=== PATIENT | female | born 1975 | race Caucasian/White ===

== ENCOUNTER 2018-10-06 23:55 | Emergency (ER) | payer MEDICAID, OTHER ==
[2018-10-07] MEDS ORDERED: MORPHINE SULFATE 4 MG/ML SYRINGE IVP STA (00:35)
[2018-10-07] MEDS ORDERED: ONDANSETRON 4 MG/2 ML VIAL IVP STA (00:35)
[2018-10-07] MEDS ORDERED: LORazepam 2 MG/ML INJ IV STA (00:39)
[2018-10-07 01:38] LABS: Basophils # (A) 0.1 k/uL (0-0.2); Basophils % (A) 1 %; Eosinophils # (A) 0.1 k/uL (0-0.7); Eosinophils % (A) 2 %; HCT 43.9 % (34.0-46.0); HGB 14.4 gm/dL (11.4-16.0); Lymphocytes # (A) 3.2 k/uL (1.0-4.8); Lymphocytes % (A) 35 %; MCH 29.8 pg (25.0-35.0); MCHC 32.8 g/dL (31.0-37.0); Mean Platelet Volume 7.1; Monocytes # (A) 0.4 k/uL (0-1.0); Monocytes % (A) 4 %; Neutrophils # (A) 5.1 k/uL (1.3-7.7); Neutrophils % (A) 56 %; Platelet Count 218 k/uL (150-450); RBC 4.82 m/uL (3.80-5.40); WBC 9.1 k/uL (3.8-10.6)
[2018-10-07 02:02] LABS: ALT 40 U/L (9-52); AST 67 U/L (14-36); Albumin 4.3 g/dL (3.5-5.0); Alkaline Phosphatase 82 U/L (38-126); Anion Gap 9 mmol/L; Blood Urea Nitrogen 13 mg/dL (7-17); Calcium 9.5 mg/dL (8.4-10.2); Carbon Dioxide 29 mmol/L (22-30); Chloride 102 mmol/L (98-107); Glucose 138 mg/dL (74-99); Sodium 140 mmol/L (137-145); Total Bilirubin 1.5 mg/dL (0.2-1.3); Total Protein 7.7 g/dL (6.3-8.2)
--- NOTE | 2018-10-07 02:11 | CT ---
EXAMINATION TYPE: CT abdomen pelvis w con DATE OF EXAM: 10/07/2018 COMPARISON: None HISTORY: Abd pain CT DLP: 3815.20 mGycm Automated exposure control for dose reduction was used. TECHNIQUE: Helical acquisition of images was performed from the lung bases through the pelvis. CONTRAST: Performed without Oral Contrast and with IV Contrast, patient injected with 100 mL of Isovue 300. FINDINGS: Multiple axial sections were obtained from the diaphragm to the floor the pelvis with intravenous con trast. FINDINGS: There is some mild atelectasis at the lung bases. Heart appears enlarged. There is no pericardial eff usion. There is no pleural effusion. Exam is limited by patient size. Stomach is distended. Liver maricruz ws no focal defect. Liver is enlarged and measures 20 cm. Gallbladder is large and measures 4 cm. Spl een appears normal. There is no evidence of a pancreatic mass. There is no adrenal mass. Kidneys show satisfactory contrast opacification. There is no hydronephrosi s. Ureters are not dilated. There is small umbilical hernia that contains fat. There is no retroperit vyas adenopathy. The appendix appears normal. There is no free fluid in the abdomen. Bladder distend s smoothly. There is no inguinal hernia. There is no evidence of a pelvic mass. There is no sign of f ree air. There is no mesenteric edema. There are scattered sigmoid diverticula. There is no sign of d iverticulitis. There is no evidence of a bowel obstruction. There is subcutaneous edema over the post erior lumbar spine. There is narrowing at L5-S1 disc space. There is no compression fracture. Lumbar spine is intact. Bony pelvis appears intact. IMPRESSION: NEGATIVE CT SCAN ABDOMEN AND PELVIS. CARDIOMEGALY. NORMAL APPENDIX. NO ACUTE ABNORMALITY. Hepatomegaly. Sigmoid diverticulosis without diverticulitis.
--- NOTE | 2018-10-07 02:19 | CT ---
EXAMINATION TYPE: CT thor lumbar spine w con DATE OF EXAM: 10/07/2018 COMPARISON: None HISTORY: back pain CT DLP: mGycm Automated exposure control for dose reduction was used. CONTRAST: Performed with IV Contrast, patient injected with mL of . The contrast was Isovue 100 mL. FINDINGS: The thoracic and lumbar vertebra have fairly normal spacing and alignment. There is narrowing at L5-S 1 disc space with spurring of the endplates. There is no compression fracture. There is no thoracic p araspinal mass. There is no lumbar paraspinal mass. The posterior elements are intact. There is no felix mbar spinal stenosis. The sacroiliac joints appear intact. Sacrum appears intact. IMPRESSION: MILD SPONDYLOSIS AT L5-S1. NO FRACTURE SEEN. MILD POSTERIOR DISC BULGING AT L4-5 AND L5-S1 WITHOUT SP INAL STENOSIS. NEGATIVE THORACIC SPINE CT SCAN.
[2018-10-07 02:20] LABS: Appearance,Urine Clear (Clear); Bilirubin,Urine Negative (Negative); Blood,Urine Negative (Negative); Color,Urine Yellow; Glucose,Urine (UA) Negative (Negative); Ketones,Urine Negative (Negative); Leukocyte Esterase,Urine Negative (Negative); Nitrite,Urine Negative (Negative); Protein,Urine Trace (Negative); Urobilinogen,Urine <2.0 mg/dL (<2.0)
--- NOTE | 2018-10-07 02:30 | ED ---
Back Pain HPI - General Chief Complaint: Back Pain/Injury Stated Complaint: Back/ Abd Pain Time Seen by Provider: 10/07/18 00:16 Source: patient Limitations: no limitations - History of Present Illness Initial Comments: 43-year-old female past history of chronic back pain presenting today for chief complaint of back pain. Patient states that she noticed some right-sided low back pain that felt muscular in characteristic. She states she attempts to stretch as her is a massage therapist he began to massage her back. She states that this increased the pain causing her muscles to spasm and significant pain. Patient states she is unable to control pain and presented for evaluation. Patient denies any falls trauma to the back. Patient denies any dysuria, urgency, frequency, hematuria, fever, chills, night sweats, loss of bowel bladder control, urinary retention, loss of sensation or muscle weakness of the lower extremities.. Patient denies any chest pain dizziness or shortness of breath. Patient denies any dyspnea on exertion or thoracic back pain. Patient states that pain significantly increases with any movement of the lumbar spine. Remainder was negative. Upon arrival patient appears uncomfortable. Vital signs within acceptable limits. - Related Data Previous Rx's Medication Instructions Recorded Cyclobenzaprine [Flexeril] 10 mg PO HS 6 Days #6 tab 10/07/18 Allergies Allergy/AdvReac Type Severity Reaction Status Date / Time cetirizine HCl [From Zyrtec] Allergy Nausea & Verified 10/07/18 00:13 Vomiting citalopram hydrobromide Allergy Nausea & Verified 10/07/18 00:13 [From Celexa] Vomiting fluconazole [From Diflucan] Allergy Nausea & Verified 10/07/18 00:13 Vomiting hydrocodone bitartrate Allergy Nausea & Verified 10/07/18 00:13 [From [place]] Vomiting ibuprofen [From Motrin] Allergy Itching Verified 10/07/18 00:13 morphine Allergy Nausea & Verified 10/07/18 00:13 Vomiting paroxetine HCl [From Paxil] Allergy Nausea & Verified 10/07/18 00:13 Vomiting venlafaxine HCl Allergy Nausea & Verified 10/07/18 00:13 [From Effexor] Vomiting Review of Systems ROS Statement: Those systems with pertinent positive or pertinent negative responses have been documented in the HPI. ROS Other: All systems not noted in ROS Statement are negative. Past Medical History Past Medical History: No Reported History Additional Past Medical History / Comment(s): herniated disc History of Any Multi-Drug Resistant Organisms: None Reported Past Surgical History: Adenoidectomy Additional Past Surgical History / Comment(s): right Pinky, eye sx Past Anesthesia/Blood Transfusion Reactions: No Reported Reaction Past Psychological History: Depression Smoking Status: Never smoker Past Alcohol Use History: None Reported Past Drug Use History: None Reported - Past Family History Mother Family Medical History: No Reported History General Exam - General Exam Comments Initial Comments: General: The patient is awake and alert, in no distress, and does not appear acutely ill. Eye: +3 mm pupils are equal, round and reactive to light, extra-ocular movements are intact. No nystagmus. There is normal conjunctiva bilaterally. No signs of icterus. Ears, nose, mouth and throat: There are moist mucous membranes and no oral lesions. Neck: The neck is supple, there is no tenderness or JVD. Cardiovascular: There is a regular rate and rhythm. No murmur, rub or gallop is appreciated. Respiratory: Lungs are clear to auscultation, respirations are non-labored, breath sounds are equal. No wheezes, stridor, rales, or rhonchi. Gastrointestinal: Soft, non-distended, non-tender abdomen without masses or organomegaly noted. There is no rebound or guarding present. No CVA tenderness. Bowel sounds are unremarkable. Musculoskeletal: Patient is able to ambulate without difficulty. No midline tenderness to palpation of the lumbar spine. There is lumbar right-sided paravertebral tenderness as well as significant muscle tension bilaterally of the paravertebral and back musculature, lumbar region. Normal ROM, no tenderness of the lower extremities equal bilaterally. Strength 5/5 of the lower extremities equal bilaterally. Sensation intact of the lower extremities including the saddle region. DP pulses equal bilaterally 2+. Neurological: A&O x 3. CN II-XII intact, There are no obvious motor or sensory deficits. Coordination appears grossly intact. Speech is normal. Skin: Skin is warm and dry and no rashes or lesions are noted. Psychiatric: Cooperative, appropriate mood & affect, normal judgment. Limitations: no limitations Course Vital Signs 10/07/18 10/07/18 10/07/18 00:11 02:14 02:51 Temperature 97.6 F 97.5 F L Pulse Rate 80 86 88 Respiratory 20 18 10 L Rate Blood Pressure 150/60 124/80 130/81 O2 Sat by Pulse 99 98 96 Oximetry Medical Decision Making - Medical Decision Making 40-year-old female with chief complaint of low back pain. No history of trauma. Patient states increased with massage. Patient's pain appear colicky, concern for renal colic. CT of the abdomen and pelvis negative for nephrolithiasis. Patient pain is reproducible. No signs of cauda equina. Patient given medication including muscle relaxant and opiate for pain relief. Upon ambulation patient is much more comfortable. Patient is able to ambulate without difficulty. Patient's pain appears mostly paravertebral and upper back musculature. There is palpable muscle tension. At this time due to the patient 's pain is muscular skeletal. Urinalysis revealed no hematuria. Significant improvement patient pain. I feel patient is stable for discharge with prescription for Flexeril for symptom relief. Patient instructed to use ibuprofen for pain management. She is agreeable plan and discharged. Return parameters were discussed at length, patient verbalizes understanding. Patient discharged stable condition. Case discussed with attending provider Dr. Barrera prior to pt discharge. - Lab Data Result diagrams: 10/07/18 00:50 10/07/18 00:50 Lab Results 10/07/18 10/07/18 10/07/18 Range/Units 00:50 00:50 02:10 WBC 9.1 (3.8-10.6) k/uL RBC 4.82 (3.80-5.40) m/uL Hgb 14.4 (11.4-16.0) gm/dL Hct 43.9 (34.0-46.0) % MCV 91.0 (80.0-100.0) fL MCH 29.8 (25.0-35.0) pg MCHC 32.8 (31.0-37.0) g/dL RDW 13.0 (11.5-15.5) % Plt Count 218 (150-450) k/uL Neutrophils % 56 % Lymphocytes % 35 % Monocytes % 4 % Eosinophils % 2 % Basophils % 1 % Neutrophils # 5.1 (1.3-7.7) k/uL Lymphocytes # 3.2 (1.0-4.8) k/uL Monocytes # 0.4 (0-1.0) k/uL Eosinophils # 0.1 (0-0.7) k/uL Basophils # 0.1 (0-0.2) k/uL Sodium 140 (137-145) mmol/L Potassium 4.0 (3.5-5.1) mmol/L Chloride 102 (98-107) mmol/L Carbon Dioxide 29 (22-30) mmol/L Anion Gap 9 mmol/L BUN 13 (7-17) mg/dL Creatinine 0.82 (0.52-1.04) mg/dL Est GFR (CKD-EPI)AfAm >90 (>60 ml/min/1.73 sqM) Est GFR (CKD-EPI)NonAf 88 (>60 ml/min/1.73 sqM) Glucose 138 H (74-99) mg/dL Calcium 9.5 (8.4-10.2) mg/dL Total Bilirubin 1.5 H (0.2-1.3) mg/dL AST 67 H (14-36) U/L ALT 40 (9-52) U/L Alkaline Phosphatase 82 (38-126) U/L Total Protein 7.7 (6.3-8.2) g/dL Albumin 4.3 (3.5-5.0) g/dL Urine Color Yellow Urine Appearance Clear (Clear) Urine pH 7.0 (5.0-8.0) Ur Specific [place] >1.050 H (1.001-1.035) Urine Protein Trace H (Negative) Urine Glucose (UA) Negative (Negative) Urine Ketones Negative (Negative) Urine Blood Negative (Negative) Urine Nitrite Negative (Negative) Urine Bilirubin Negative (Negative) Urine Urobilinogen <2.0 (<2.0) mg/dL Ur Leukocyte Esterase Negative (Negative) Disposition Clinical Impression: Low back strain, Acute exacerbation of chronic low back pain Disposition: HOME SELF-CARE Condition: Good Instructions (If sedation given, give patient instructions): Acute Low Back Pain (ED) Additional Instructions: Please use medication as discussed. Please follow-up with family doctor in the next 2 days. Please return to emergency room if the symptoms increase or worsen or for any other concerns. Prescriptions: Cyclobenzaprine [Flexeril] 10 mg PO HS 6 Days #6 tab Is patient prescribed a controlled substance at d/c from ED?: No Referrals: Blane Parks MD [Primary Care Provider] - 1-2 days Time of Disposition: 02:29
[2018-10-07 03:00] VITALS: BP 130/81; PULSE 88; RESP 10; TEMP 97.5
[2018-10-07 03:08] LABS: Specific Gravity,Urine >1.050 (1.001-1.035)
== END 2018-10-07 02:51 | disposition home or self-care (01) ==
LOC: EC 23:55
DX: S39.012A Strain of muscle, fascia and tendon of lower back, initial encounter (principal); G89.29 Other chronic pain; Z88.5 Allergy status to narcotic agent; Z88.6 Allergy status to analgesic agent; Z88.8 Allergy status to other drugs, medicaments and biological substances; X58.XXXA Exposure to other specified factors, initial encounter; Y93.01 Activity, walking, marching and hiking
CPT/HCPCS: 36415; 80053; 85025; 81003; 72129; 72132; 74177; 99284; 96374; 96375 ×2; J2060; J2270; J2405; Q9967

== ENCOUNTER → 2018-10-09 | Outpatient (CLI) | payer MEDICAID ==
--- NOTE | 2018-10-09 14:00 | US ---
EXAMINATION TYPE: US abdomen limited DATE OF EXAM: 10/09/2018 COMPARISON: CLINICAL HISTORY: R10.30 ABD Pain. RUQ pain EXAM MEASUREMENTS: Liver Length: 18.7 cm Gallbladder Wall: 0.3 cm CHD: 0.4 cm Right Kidney: 12.2 x 5.8 x 5.2 cm Pancreas: Tail obscured by overlying bowel gas. Body - 1.9 cm. Liver: Appears enlarged in size. Gallbladder: multiple mobile echogenic foci. GB length - 9.4 cm Evidence for sonographic Qureshi's sign: neg CBD: Obscured by overlying bowel gas Right Kidney: wnl IMPRESSION: 1. Hepatomegaly 2. Multiple echogenic gallstones. No wall thickening or common bile duct dilatation.
== END | disposition home or self-care (01) ==
LOC: RADUSWWP 12:21
PROVIDERS: ATTEND Family Medicine
DX: K80.20 Calculus of gallbladder without cholecystitis without obstruction (principal); R16.0 Hepatomegaly, not elsewhere classified; Z88.8 Allergy status to other drugs, medicaments and biological substances
CPT/HCPCS: 76705

== ENCOUNTER 2018-10-16 06:47 | Day surgery (SDC) | payer MEDICAID ==
[2018-10-12 16:19] VITALS: BMI 43.2
[~2018-10-16 06:47] MED LIST: DEXAMETHASONE SOD PHOSPHATE 10 MG/ML 1 ML VIAL IV ONE; HEPARIN SODIUM,PORCINE 5,000 UNIT/ML 1 ML VIAL SQ ONE; LACTATED RINGERS 1,000 ML IV SCH; MIDAZOLAM (PF) 2 MG/2 ML VIAL IV PRN; ONDANSETRON 4 MG/2 ML VIAL IVP ONE; SCOPOLAMINE 1.5MG/72HR PATCH TRANSDERM ONE; ceFAZolin IN SWFI 2 GM/20 ML SYRINGE IVP ONE; fentaNYL (PF) 50 MCG/ML 2 ML AMP IV PRN
[2018-10-16] MEDS ORDERED: LIDOCAINE 1% 20 ML VIAL (10MG/ML) FOR IV START SQ ONE (07:20)
--- NOTE | 2018-10-16 07:47 | P.GSHP ---
History of Present Illness H&P Date: 10/16/18 Chief Complaint: Right upper quadrant pain This a 43-year-old female who presents today for laparoscopic cholecystectomy. Patient has had complaints of right quadrant pain. Her recent ultrasounds evidence of cholelithiasis. Past Medical History Past Medical History: Liver Disease Additional Past Medical History / Comment(s): herniated disc, enlarged liver with elevated liver enzymes, PCOS, diverticulosis/diverticulitis History of Any Multi-Drug Resistant Organisms: None Reported Past Surgical History: Appendectomy, Orthopedic Surgery Additional Past Surgical History / Comment(s): right Pinky, eye sx Past Anesthesia/Blood Transfusion Reactions: Postoperative Nausea & Vomiting ( PONV) Smoking Status: Never smoker - Past Family History Mother Family Medical History: Cancer, COPD Additional Family Medical History / Comment(s): cervical cancer Sister(s) Family Medical History: Cancer Additional Family Medical History / Comment(s): cervical cancer Medications and Allergies Home Medications Medication Instructions Recorded Confirmed Type Cyclobenzaprine [Flexeril] 10 mg PO HS 6 Days #6 tab 10/07/18 10/16/18 Rx Pamprin 1 tab PO DAILY PRN 10/12/18 10/16/18 History Midol (Acetaminophen) 1 tab PO DAILY PRN 10/13/18 10/16/18 History Allergies Allergy/AdvReac Type Severity Reaction Status Date / Time cetirizine HCl [From Zyrtec] Allergy Nausea & Verified 10/16/18 06:58 Vomiting citalopram hydrobromide Allergy Nausea & Verified 10/16/18 06:58 [From Celexa] Vomiting fluconazole [From Diflucan] Allergy Nausea & Verified 10/16/18 06:58 Vomiting hydrocodone bitartrate Allergy Nausea & Verified 10/16/18 06:58 [From [place]] Vomiting ibuprofen [From Motrin] Allergy Itching Verified 10/16/18 06:58 morphine Allergy Nausea & Verified 10/16/18 06:58 Vomiting paroxetine HCl [From Paxil] Allergy Nausea & Verified 10/16/18 06:58 Vomiting venlafaxine HCl Allergy Nausea & Verified 10/16/18 06:58 [From Effexor] Vomiting Surgical - Exam Vital Signs Temp Pulse Resp BP Pulse Ox 98.4 F 81 16 111/78 94 L 10/16/18 07:13 10/16/18 07:13 10/16/18 07:13 10/16/18 07:13 10/16/18 07:13 - General well developed, well nourished, no distress - Eyes PERRL - ENT normal pinna - Neck no masses - Respiratory normal expansion - Cardiovascular Rhythm: regular - Abdomen Abdomen: soft, non tender Assessment and Plan Assessment: Right upper quadrant pain Lithiasis We'll perform laparoscopic cholecystectomy.
[2018-10-16] MEDS ORDERED: ROCURONIUM BROMIDE 10 MG/ML 10 ML VIAL IV ONE (07:54)
[2018-10-16] MEDS ORDERED: fentaNYL (PF) 50 MCG/ML 2 ML AMP ONE (07:54)
[2018-10-16] MEDS ORDERED: GLYCOPYRROLATE 0.2 MG/ML 2 ML VIAL ONE (07:54)
[2018-10-16] MEDS ORDERED: SUCCINYLCHOLINE CHLORIDE 100 MG/5 ML SYR IV ONE (07:54)
[2018-10-16] MEDS ORDERED: HYDROmorphone (PF) 1 MG/ML ONE (07:54)
[2018-10-16] MEDS ORDERED: PROPOFOL 10 MG/ML 20 ML VIAL IV ONE (07:54)
[2018-10-16] MEDS ORDERED: LIDOCAINE 1% INJ 10MG/ML (20 ML MDV) ONE (07:54)
[2018-10-16] MEDS ORDERED: NEOSTIGMINE 1 MG/ML 10 ML VIAL ONE (07:54)
[2018-10-16] MEDS ORDERED: MIDAZOLAM 2 MG/2 ML VIAL ONE (07:54)
[2018-10-16] MEDS ORDERED: BUPIVACAIN-EPI 0.5%-1:200,000 30 ML VIAL SQ ONE (08:20)
[2018-10-16] MEDS ORDERED: HYDROmorphone 1 MG/ML 1 ML SYRINGE IVP ONE ×2 (08:52→08:57)
[2018-10-16 08:57] VITALS: TEMP 97.5
--- NOTE | 2018-10-16 08:58 | P.OP ---
Date of Procedure: 10/16/18 Preoperative Diagnosis: Cholecystitis Postoperative Diagnosis: Cholecystitis Procedure(s) Performed: Laparoscopic cholecystectomy Anesthesia: MARIANO Surgeon: Nazario Martinez Estimated Blood Loss (ml): 5 Pathology: other (Gallbladder) Condition: stable Disposition: PACU Description of Procedure: The patient was placed on the operating table. The patient received a general endotracheal tube anesthesia. The patients abdomen was prepped and draped in the usual sterile fashion. Through an infraumbilical stab incision, the fascia of the anterior abdominal wall was grasped with a pair of Kochers and then the Veress needle was placed in the peritoneal cavity. Position of the Veress needle was confirmed with positive drop test. The abdomen was then insufflated. After adequate insufflation, the 10 mm trocar was placed in the peritoneal cavity. Following this the laparoscope was placed in the peritoneal cavity. The patient was placed in the head-up, right side up position and then a 5 mm trocar was placed in the right lateral and right subcostal position under direct visualization. A 8 mm trocar was placed in the epigastric position. The gallbladder was grasped in the fundus and infundibulum. Traction on the gallbladder was placed in the lateral and the cephalad positions. The triangle of Calot was visualized.. The cystic duct was bluntly dissected until the union of the cystic duct and common bile duct was seen. The cystic duct was then divided and sealed with the Harmonic scissors. A PDS Endoloop was then placed throughout the cystic duct stump. The cystic artery divided and sealed with the Harmonic scissors. The gallbladder was then removed from the liver bed using Harmonic scissors. The gallbladder was then extracted through the epigastric port site. Operative field was checked for any bleeding spots and Harmonic scissors was used to coagulate the liver bed. The abdomen was irrigated. The trocars were removed. The skin was closed using interrupted 3-0 Vicryl suture. Dermabond dressing were applied. The patient tolerated the procedure well.
[2018-10-16 10:28] VITALS: RESP 16
[2018-10-16 11:30] VITALS: BP 130/86; PULSE 84
== END 2018-10-16 12:22 | disposition home or self-care (01) ==
LOC: OR 06:47
PROVIDERS: ATTEND Surgery
DX: K80.10 Calculus of gallbladder with chronic cholecystitis without obstruction (principal); E28.2 Polycystic ovarian syndrome; R16.0 Hepatomegaly, not elsewhere classified; R03.0 Elevated blood-pressure reading, without diagnosis of hypertension; Z79.899 Other long term (current) drug therapy; Z88.8 Allergy status to other drugs, medicaments and biological substances; Z88.5 Allergy status to narcotic agent; Z88.6 Allergy status to analgesic agent
CPT/HCPCS: 81025; 88304; 47562; J2250; J1644; J1100; J2710; J2405; J2001; J3010; J1170; J0330; J2704; J0690

== ENCOUNTER → 2020-07-24 | Outpatient (CLI) | payer MEDICAID, OTHER | END | disposition home or self-care (01) | LOC: LABWHC1 10:18 | PROVIDERS: ATTEND Family Medicine | DX: R05 Cough (principal); Z20.828 Contact with and (suspected) exposure to other viral communicable diseases | CPT/HCPCS: U0003; C9803 ==

== ENCOUNTER 2020-11-20 08:01 | Day surgery (SDC) | payer BC, OTHER ==
[2020-11-17 14:48] VITALS: BMI 42.4
[~2020-11-20 08:01] MED LIST changes: -DEXAMETHASONE SOD PHOSPHATE 10 MG/ML 1 ML VIAL IV ONE; -HEPARIN SODIUM,PORCINE 5,000 UNIT/ML 1 ML VIAL SQ ONE; +LIDOCAINE 1% (10MG/ML) FOR IV START INTRADERMA PRN; -MIDAZOLAM (PF) 2 MG/2 ML VIAL IV PRN; -ONDANSETRON 4 MG/2 ML VIAL IVP ONE; -SCOPOLAMINE 1.5MG/72HR PATCH TRANSDERM ONE; -ceFAZolin IN SWFI 2 GM/20 ML SYRINGE IVP ONE; -fentaNYL (PF) 50 MCG/ML 2 ML AMP IV PRN
[2020-11-20 08:42] VITALS: TEMP 97.4
[2020-11-20] MEDS ORDERED: PROPOFOL 10 MG/ML 20 ML VIAL IV ONE (08:52)
--- NOTE | 2020-11-20 08:54 | P.GSHP ---
History of Present Illness H&P Date: 11/20/20 Chief Complaint: Diverticulitis This a 45-year-old female history diverticulitis. Patient presents today for colonoscopy. Past Medical History Past Medical History: Liver Disease Additional Past Medical History / Comment(s): ABD. PAIN WITH EATING. herniated disc, enlarged liver with elevated liver enzymes, PCOS, diverticulosis/diverticulitis History of Any Multi-Drug Resistant Organisms: None Reported Past Surgical History: Appendectomy, Cholecystectomy, Orthopedic Surgery Additional Past Surgical History / Comment(s): right Pinky, eye sx Past Anesthesia/Blood Transfusion Reactions: Postoperative Nausea & Vomiting (PONV) Smoking Status: Never smoker - Past Family History Mother Family Medical History: Cancer, COPD Additional Family Medical History / Comment(s): cervical cancer Sister(s) Family Medical History: Cancer Additional Family Medical History / Comment(s): cervical cancer Medications and Allergies Home Medications Medication Instructions Recorded Confirmed Type Fexofenadine/Pseudoephedrine 1 each PO BID PRN 11/17/20 11/20/20 History [[place]-D 12 Hour Tablet] Naproxen Sodium [Aleve] 220 mg PO DAILY PRN 11/17/20 11/17/20 History Allergies Allergy/AdvReac Type Severity Reaction Status Date / Time cetirizine HCl [From Zyrtec] Allergy Nausea & Verified 11/20/20 08:31 Vomiting citalopram hydrobromide Allergy Nausea & Verified 11/20/20 08:31 [From Celexa] Vomiting fluconazole [From Diflucan] Allergy Nausea & Verified 11/20/20 08:31 Vomiting hydrocodone bitartrate Allergy Nausea & Verified 11/20/20 08:31 [From [place]] Vomiting ibuprofen [From Motrin] Allergy Itching Verified 11/20/20 08:31 morphine Allergy Nausea & Verified 11/20/20 08:31 Vomiting paroxetine HCl [From Paxil] Allergy Nausea & Verified 11/20/20 08:31 Vomiting venlafaxine HCl Allergy Nausea & Verified 11/20/20 08:31 [From Effexor] Vomiting Surgical - Exam Vital Signs Temp Pulse Resp BP Pulse Ox 97.4 F L 90 17 129/75 97 11/20/20 08:41 11/20/20 08:41 11/20/20 08:41 11/20/20 08:41 11/20/20 08:41 - General well developed, well nourished, no distress - Eyes PERRL - ENT normal pinna - Neck no masses - Respiratory normal expansion - Cardiovascular Rhythm: regular - Abdomen Abdomen: soft, non tender Assessment and Plan Assessment: History of diverticulitis. We will perform colonoscopy.
--- NOTE | 2020-11-20 09:10 | P.OP ---
Date of Procedure: 11/20/20 Preoperative Diagnosis: Diverticulitis Postoperative Diagnosis: Diverticulosis Procedure(s) Performed: Colonoscopy Anesthesia: MAC Surgeon: Nazario Martinez Pathology: none sent Condition: stable Disposition: PACU Description of Procedure: Patient's placed on the endoscopy table in the lateral position. She received IV sedation. Digital rectal exam was performed which revealed no abnormalities. Flexible colonoscope was then placed patient anus and passed throughout the entire colon. The ileocecal valve visualized. Cecum, ascending and transverse colon appeared normal. In the descending; there is mild diverticular changes. Scope summer back the rectum and this appeared normal. Scope was withdrawn for patient.
[2020-11-20 09:52] VITALS: BP 113/64; PULSE 82; RESP 17
== END 2020-11-20 11:00 | disposition home or self-care (01) ==
LOC: ORWHC2ENDO 08:01
PROVIDERS: ATTEND Surgery
DX: K57.30 Diverticulosis of large intestine without perforation or abscess without bleeding (principal); R16.0 Hepatomegaly, not elsewhere classified; E28.2 Polycystic ovarian syndrome; K57.32 Diverticulitis of large intestine without perforation or abscess without bleeding; Z90.49 Acquired absence of other specified parts of digestive tract; Z90.89 Acquired absence of other organs; Z98.890 Other specified postprocedural states; Z80.49 Family history of malignant neoplasm of other genital organs; Z88.5 Allergy status to narcotic agent; Z88.8 Allergy status to other drugs, medicaments and biological substances; Z88.6 Allergy status to analgesic agent
CPT/HCPCS: 81025; 45378; J2704

== ENCOUNTER 2021-01-28 02:10 | Emergency (ER) | payer BC, OTHER ==
[2021-01-28 02:28] VITALS: BP 146/93; PULSE 93; RESP 20; TEMP 98
[2021-01-28] MEDS ORDERED: AMOXIC-POT CLAV 875MG STARTER PACK 2 TAB BTL PO STA (03:29)
[2021-01-28] MEDS ORDERED: AMOXIC-POT CLAV 875-125MG 1 EACH TAB PO STA (03:29)
[2021-01-28] MEDS ORDERED: PSEUDOEPHEDRINE 12HR 120 MG TABLET.ER PO STA (03:29)
--- NOTE | 2021-01-28 03:30 | ED ---
ENT HPI - General Chief complaint: ENT Stated complaint: ENT, WARREN Time Seen by Provider: 01/28/21 02:18 Source: patient, RN notes reviewed, old records reviewed Mode of arrival: ambulatory Limitations: no limitations - History of Present Illness Initial comments: This is a 45-year-old female who can't catch her breath she is admitted anxiety attacks was sleeping especially with having shortness of breath due to her recent sinus infection but she cannot catch her breath tonight with presented to the emergency room. Patient states symptoms did mildly improved throughout transport. MD complaint: sore throat, difficulty swallowing, other (Shortness of breath persistently regarding all this) -: days(s) Location: nose Severity: moderate Severity scale (1-10): 6 Consistency: constant Improves with: none Worsens with: none Context-Epistaxis: history of similar Associated Symptoms: cough, sore throat, rhinorrhea - Related Data Home Medications Medication Instructions Recorded Confirmed Fexofenadine/Pseudoephedrine 1 each PO BID PRN 11/17/20 11/20/20 [[place]-D 12 Hour Tablet] Naproxen Sodium [Aleve] 220 mg PO DAILY PRN 11/17/20 11/17/20 Previous Rx's Medication Instructions Recorded Amoxic-Pot Clav 875-125Mg 1 tab PO Q12HR #20 tablet 01/28/21 [Augmentin 875-125] Allergies Allergy/AdvReac Type Severity Reaction Status Date / Time cetirizine HCl [From Zyrtec] Allergy Nausea & Verified 01/28/21 02:28 Vomiting citalopram hydrobromide Allergy Nausea & Verified 01/28/21 02:28 [From Celexa] Vomiting fluconazole [From Diflucan] Allergy Nausea & Verified 01/28/21 02:28 Vomiting hydrocodone bitartrate Allergy Nausea & Verified 01/28/21 02:28 [From [place]] Vomiting ibuprofen [From Motrin] Allergy Itching Verified 01/28/21 02:28 morphine Allergy Nausea & Verified 01/28/21 02:28 Vomiting paroxetine HCl [From Paxil] Allergy Nausea & Verified 01/28/21 02:28 Vomiting venlafaxine HCl Allergy Nausea & Verified 01/28/21 02:28 [From Effexor] Vomiting Review of Systems ROS Statement: Those systems with pertinent positive or pertinent negative responses have been documented in the HPI. ROS Other: All systems not noted in ROS Statement are negative. Past Medical History Past Medical History: Liver Disease Additional Past Medical History / Comment(s): ABD. PAIN WITH EATING. herniated disc, enlarged liver with elevated liver enzymes, PCOS, diverticulosis/diverticulitis. COVID 10/02 History of Any Multi-Drug Resistant Organisms: None Reported Past Surgical History: Appendectomy, Cholecystectomy, Orthopedic Surgery Additional Past Surgical History / Comment(s): right Pinky, eye sx Past Anesthesia/Blood Transfusion Reactions: Postoperative Nausea & Vomiting (PONV) Past Psychological History: Depression Smoking Status: Never smoker Past Alcohol Use History: None Reported Past Drug Use History: None Reported - Past Family History Mother Family Medical History: Cancer, COPD Additional Family Medical History / Comment(s): cervical cancer Sister(s) Family Medical History: Cancer Additional Family Medical History / Comment(s): cervical cancer General Exam Limitations: no limitations General appearance: alert, in no apparent distress Head exam: Present: atraumatic, normocephalic, normal inspection Eye exam: Present: normal appearance, PERRL, EOMI. Absent: scleral icterus, conjunctival injection, periorbital swelling ENT exam: Present: normal exam, mucous membranes moist Neck exam: Present: normal inspection. Absent: tenderness, meningismus, lymphadenopathy Respiratory exam: Present: normal lung sounds bilaterally. Absent: respiratory distress, wheezes, rales, rhonchi, stridor Cardiovascular Exam: Present: regular rate, normal rhythm, normal heart sounds. Absent: systolic murmur, diastolic murmur, rubs, gallop, clicks GI/Abdominal exam: Present: soft, normal bowel sounds. Absent: distended, tenderness, guarding, rebound, rigid Extremities exam: Present: normal inspection, full ROM, normal capillary refill. Absent: tenderness, pedal edema, joint swelling, calf tenderness Back exam: Present: normal inspection Neurological exam: Present: alert, oriented X3, CN II-XII intact Psychiatric exam: Present: normal affect, normal mood Skin exam: Present: warm, dry, intact, normal color. Absent: rash Course Vital Signs 01/28/21 02:23 Temperature 98.0 F Pulse Rate 93 Respiratory 20 Rate Blood Pressure 146/93 O2 Sat by Pulse 97 Oximetry - Reevaluation(s) Reevaluation #1: Medical record is reviewed Patient has significant improvement in symptoms here in the ER Spoke patient regarding findings at length and questions are answered Medical Decision Making - Medical Decision Making 45-year-old female DF for evaluation. Patient is a persistent sinus infection. We'll treat with antibiotics and patient can be discharged home Disposition Clinical Impression: Allergic rhinitis, Acute sinusitis Disposition: HOME SELF-CARE Condition: Good Instructions (If sedation given, give patient instructions): Sinusitis (ED) Prescriptions: Amoxic-Pot Clav 875-125Mg [Augmentin 875-125] 1 tab PO Q12HR #20 tablet Is patient prescribed a controlled substance at d/c from ED?: No Referrals: Blane Parks MD [Primary Care Provider] - 1-2 days
[2021-01-28] MEDS ORDERED: FLUTICASONE 50MCG/SPRAY NASAL 16GM EA NOSTRIL SCH (09:00)
== END 2021-01-28 04:08 | disposition home or self-care (01) ==
LOC: EC 02:10
DX: J30.9 Allergic rhinitis, unspecified (principal); J01.90 Acute sinusitis, unspecified; Z90.89 Acquired absence of other organs; Z90.49 Acquired absence of other specified parts of digestive tract; F32.9 Major depressive disorder, single episode, unspecified
CPT/HCPCS: 99283

== ENCOUNTER → 2022-12-09 | Outpatient (CLI) | payer BC ==
--- NOTE | 2022-12-09 13:23 | XR ---
EXAMINATION TYPE: XR chest 2V DATE OF EXAM: 12/09/2022 COMPARISON: NONE TECHNIQUE: PA and lateral views submitted. HISTORY: Cough FINDINGS: The lungs are clear and there is no pneumothorax, pleural effusion, or focal pneumonia. Heart size normal and no overt failure. Osseous structures demonstrate hypertrophic and degenerative changes of the spine. Hyperinflation. IMPRESSION: 1. No acute process.
== END | disposition home or self-care (01) ==
LOC: RADXRMAIN 12:31
PROVIDERS: ATTEND Family Medicine
DX: R05.9 Cough, unspecified (principal)
CPT/HCPCS: 71046

== ENCOUNTER → 2024-06-29 | Outpatient (CLI) | payer BC ==
--- NOTE | 2024-07-03 18:56 | MM ---
Reason for Exam: Screening (asymptomatic). Patient History: Menarche at age 9. First Full-Term at age 40. Late child-bearing (after 30). Perimenopausal. Paternal aunt had breast cancer, age 50. Risk Values: Lucrecia 5 year model risk: 1.4%. NCI Lifetime model risk: 13.4%. Tissue Density: The breasts are heterogeneously dense, which may obscure small masses. Findings: Analyzed By CAD. No significant mass, suspicious microcalcification, or other discrete abnormality is seen. Overall Assessment: Negative, BI-RAD 1 Management: Screening Mammogram of both breasts in 1 year. Patient should continue monthly self-breast exams. A clinical breast exam by your physician is recommended on an annual basis. This exam should not preclude additional follow-up of suspicious palpable abnormalities. Note on Lucrecia scores and lifetime risk: 1. A Lucrecia score greater than 3% is considered moderate risk. If this is the case, consider specialist referral to assess eligibility for a risk reducing agent. 2. If overall lifetime risk for the development of breast cancer is 20% or higher, the patient may qualify for future screening with alternating mammogram and breast MRI. [facility], , 07/03/2024 6:53 PM. Electronically signed and approved by: Kvng Malone M.D. Radiologist
== END | disposition home or self-care (01) ==
LOC: RADMAMWWP 16:20
PROVIDERS: ATTEND Family Medicine
CPT/HCPCS: 77067